=== PATIENT | female | born 1980 | race African-American/Black ===

== ENCOUNTER 2017-04-23 20:31 | Emergency (ER) | payer MEDICAID | END 2017-04-23 21:19 | disposition home or self-care (01) | LOC: D.ER 20:31 | DX: M25.561 Pain in right knee (principal); M76.9 Unspecified enthesopathy, lower limb, excluding foot; K21.9 Gastro-esophageal reflux disease without esophagitis; I10 Essential (primary) hypertension; F17.200 Nicotine dependence, unspecified, uncomplicated ==